=== PATIENT | male | born 1985 | race Caucasian/White ===

== ENCOUNTER 2025-01-27 09:59 | Emergency (ER) | payer OTHER ==
[~2025-01-27] VITALS: Ht 175.3 cm; Wt 68.0 kg
[2025-01-27] MEDS ORDERED: ONDANSETRON 4 MG TAB.RAPDIS ONE (10:52)
[2025-01-27] MEDS ORDERED: CLONIDINE HCL 0.1 MG TABLET ONE (10:52)
[2025-01-27] MEDS: CLONIDINE HCL 0.1 MG TABLET PO ONE (10:54)
[2025-01-27] MEDS: ONDANSETRON 4 MG TAB.RAPDIS SL ONE (10:55)
[2025-01-27 11:03] VITALS: BP 130/90; TEMP 98.8; O2SAT 100
== END 2025-01-27 11:00 ==
LOC: ER 10:08
DX: F11.23 Opioid dependence with withdrawal (principal); F17.200 Nicotine dependence, unspecified, uncomplicated; Z65.3 Problems related to other legal circumstances
CPT/HCPCS: 99283; Q0162